=== PATIENT | male | born 1975 | race African-American/Black ===

== ENCOUNTER 2018-07-31 15:32 | Emergency (ER) | payer MEDICAID ==
[~2018-07-31] VITALS: Ht 180.3 cm; Wt 75.7 kg
[2018-07-31 15:44] VITALS: BP 98/65
== END 2018-07-31 17:26 | disposition home or self-care (01) ==
LOC: ER 15:43
DX: S39.012A Strain of muscle, fascia and tendon of lower back, initial encounter (principal); R05 Cough; X50.1XXA Overexertion from prolonged static or awkward postures, initial encounter; Y93.89 Activity, other specified; Y99.8 Other external cause status; Y92.89 Other specified places as the place of occurrence of the external cause

== ENCOUNTER 2020-04-05 14:38 | Emergency (ER) | payer MEDICAID, OTHER ==
[~2020-04-05] VITALS: Ht 182.9 cm; Wt 79.4 kg
[2020-04-05 15:27] VITALS: BP 100/66
[2020-04-05] MEDS ORDERED: METHOCARBAMOL 500 MG TAB PO ONE (16:30)
[2020-04-05] MEDS ORDERED: IBUPROFEN 800 MG TAB PO ONE (16:30)
== END 2020-04-05 17:24 | disposition home or self-care (01) ==
LOC: ER 14:38
DX: S16.1XXA Strain of muscle, fascia and tendon at neck level, initial encounter (principal); M54.5 Low back pain; V89.2XXA Person injured in unspecified motor-vehicle accident, traffic, initial encounter; Y93.89 Activity, other specified; Y92.89 Other specified places as the place of occurrence of the external cause; Y99.8 Other external cause status
CPT/HCPCS: 72040; 72100